=== PATIENT | male | born 1965 | race Caucasian/White ===

== ENCOUNTER → 2016-10-09 | Outpatient (CLI) | payer OTHER | LOC: ULTRA 15:48 | DX: R10.9 Unspecified abdominal pain (principal) ==

== ENCOUNTER 2016-10-22 15:40 | Inpatient (IN) | payer OTHER ==
[~2016-10-22] VITALS: Ht 170.2 cm
--- NOTE | ~2016-10-22 | S ---
[facility] [place] [address] SURGICAL PATH RPT PROCEDURE Name: OLI ORTEGA Room #: 439-P DIS IN M.R.#: [id number] Admission: 10/22/16 Date of : 67 Discharge: 10/24/16 Report #: [id number] Path Case #: [id number] PATHOLOGY REPORT COLLECTION DATE: 10/24/2016 RECEIVED DATE: 10/25/2016 SUBMITTING PHYS: Dr. Betsey Holman OTHER PHYS: Dr. Henrry Preston SPECIMEN(S) RECEIVED: A.Rt colon bx at distal end of stricture * * * * * * * * * * * * FINAL DIAGNOSIS: Colonic mucosa, "right colon biopsy at distal end of stricture": - Minute superficial fragments of colonic mucosa revealing mild hyperplastic changes. - There is no evidence of acute cryptitis, granulomas, adenomatous change, or malignancy. COMMENT: The biopsy fragments are minute and may not be territory representative. Suggest clinical and endoscopic correlation. (SHA:mgr; 10/28/2016) PATHOLOGIST: Benedicto Buckley M.D. REPORT ELECTRONICALLY SIGNED BY: Benedicto Buckley M.D. DATE/TIME: 10/28/2016 12:55 * * * * * * * * * * * * GROSS PATHOLOGY: Received in formalin labeled "Oli Ortega, right colon biopsy," are 3 segments of vick soft tissue measuring 0.4 x 0.3 x 0.1 cm in aggregate dimensions and ranging from 0.1 to 0.2 cm in maximum dimension. The specimen is submitted entirely in cassette A1. (KAH; 10/26/2016) CLINICAL HISTORY: Pre-op dx: Abdominal pain Post-op dx: Inflammatory process of right colon INITIAL CPT CODE(S): A; 15989 Professional services performed by [facility] at [facility] [address] [place] [address] SURGICAL PATH RPT PROCEDURE Name: ORTEGAOLI Room #: 439-P [facility] IN M.R.#: [id number] Admission: 10/22/16 Date of : 67 Discharge: 10/24/16 Report #: [id number] Path Case #: [id number] [address], [place] [address] [facility] by [facility] at [address] [place] [address], [facility] [address] [place] [address]. [place] [address] PHONE: [phone] DIRECTOR: Kendrick Villa M.D. * * * END OF REPORT * * *
[2016-10-22 17:28] VITALS: BP 123/80
[2016-10-22 19:58] VITALS: BP 123/84
[2016-10-23 06:20] LABS: HEMATOCRIT 34.6 % (42.0-52.0); HEMOGLOBIN 11.6 gm/dL (14.0-18.0); MCH 28.2 pg (26.0-34.0); MCHC 33.6 g/dL (28.0-37.0); MCV 83.9 fL (80.0-100.0); RBC 4.12 mil/uL (4.50-6.00); RDW 13.8 % (10.5-14.5); WBC 8.1 thou/uL (4.0-11.0)
[2016-10-23 06:49] LABS: ALBUMIN 2.7 g/dL (3.4-5.0); CALCIUM 8.8 mg/dL (8.5-10.1); CREATININE 1.1 mg/dL (0.7-1.3); POTASSIUM 3.7 mmol/L (3.5-5.1); TOTAL BILIRUBIN 0.5 mg/dL (<0.1-1.0); TOTAL PROTEIN 6.9 g/dL (6.4-8.2)
[2016-10-23 08:47] VITALS: BP 110/72
[2016-10-23 16:21] VITALS: BP 126/83
[2016-10-23 19:47] VITALS: BP 117/74
[2016-10-24 05:42] LABS: HEMATOCRIT 36.4 % (42.0-52.0); HEMOGLOBIN 12.1 gm/dL (14.0-18.0); MCH 28.1 pg (26.0-34.0); MCHC 33.2 g/dL (28.0-37.0); MCV 84.7 fL (80.0-100.0); PLATELET COUNT 272 thou/uL (150-400); RBC 4.29 mil/uL (4.50-6.00); RDW 13.6 % (10.5-14.5); WBC 8.1 thou/uL (4.0-11.0)
[2016-10-24 05:48] LABS: MANUAL DIFF YES
[2016-10-24 05:50] LABS: CALCIUM 8.9 mg/dL (8.5-10.1); POTASSIUM 3.8 mmol/L (3.5-5.1)
[2016-10-24 05:57] VITALS: BP 115/72
[2016-10-24 06:43] LABS: ABSOLUTE NEUTROPHILS 6.6 thou/uL (1.4-8.2); TOTAL CELL COUNT 100
[2016-10-24] MEDS ORDERED: FLAGYL500 MG PO (07:28)
[2016-10-24 08:00] VITALS: BP 121/77
[2016-10-24 16:18] VITALS: BP 121/77
[2016-10-24] MEDS ORDERED: CIPRO500 MG PO (16:18)
== END 2016-10-24 17:20 | disposition home or self-care (01) | DRG 385 ==
LOC: CAT 15:40 → 4S 16:51
PROVIDERS: Family Medicine; Nurse Practitioner Adult Health
PROC: 0DJ08ZZ Inspection of Upper Intestinal Tract, Via Natural or Artificial Opening Endoscopic (ICD-10-PCS; principal; 2016-10-24)
PROC: 0DBK8ZX Excision of Ascending Colon, Via Natural or Artificial Opening Endoscopic, Diagnostic (ICD-10-PCS; 2016-10-24)
DX: K50.90 Crohn's disease, unspecified, without complications (principal); E43 Unspecified severe protein-calorie malnutrition; I10 Essential (primary) hypertension; Z85.47 Personal history of malignant neoplasm of testis
CPT/HCPCS: 10102; 62110; 62900; 70005

== ENCOUNTER → 2017-03-19 | Outpatient (CLI) | payer OTHER ==
[~2017-03-19] MED LIST: CIPRO500 MG PO; FLAGYL500 MG PO
== END ==
LOC: CAT 13:32
DX: Z13.6 Encounter for screening for cardiovascular disorders (principal)

== ENCOUNTER 2017-06-27 05:26 | Day surgery (SDC) | payer BC, OTHER ==
[~2017-06-27] VITALS: Ht 170.2 cm; Wt 72.6 kg
--- NOTE | ~2017-06-27 | EKG ---
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
--- NOTE | ~2017-06-27 | S ---
[facility] [place] [address] SURGICAL PATH RPT PROCEDURE Name: OLI ORTEGA Room #: DEP [facility] M.R.#: [id number] Admission: 06/27/17 Date of : 67 Discharge: 06/27/17 Report #: [id number] Path Case #: [id number] PATHOLOGY REPORT COLLECTION DATE: 06/27/2017 RECEIVED DATE: 06/27/2017 SUBMITTING PHYS: Dr. Gerardo Nunez OTHER PHYS: Dr. Henrry Preston SPECIMEN(S) RECEIVED: A.L5-S1 disc * * * * * * * * * * * * FINAL DIAGNOSIS: "L5-S1 disc," discectomy: - Intervertebral disc material with reactive and degenerative changes. (CLW:mgr; 06/30/2017) PATHOLOGIST: Fátima Arreola M.D. REPORT ELECTRONICALLY SIGNED BY: Fátima Arreola M.D. DATE/TIME: 06/30/2017 22:01 * * * * * * * * * * * * GROSS PATHOLOGY: Received in formalin labeled "Oli Ortega, L5-S1 disc" and consists of a 0.8 x 0.5 x 0.4 cm aggregate of mccracken white fibrocartilaginous tissue. The specimen is entirely submitted as A1. (ALVARO; 06/27/2017) CLINICAL HISTORY: Degenerative disc disease lumbar INITIAL CPT CODE(S): 27454 Professional services performed by [facility] at [facility] [address], [place] [address] Technical services performed by [facility] at [address] [place] [address], [address], [place], [place] [address]. [facility] [address] [place] [address] [address] [place] [address] SURGICAL PATH RPT PROCEDURE Name: OLI ORTEGA Room #: DEP [facility] M.R.#: [id number] Admission: 06/27/17 Date of : 67 Discharge: 06/27/17 Report #: [id number] Path Case #: [id number] [place] [address] PHONE: [phone] DIRECTOR: Kendrick Villa M.D. * * * END OF REPORT * * *
--- NOTE | ~2017-06-27 | O ---
[facility] [place] [address] OPERATIVE REPORT Name: DEBBIE MONCADA Room #: DEP [facility].#: [id number] Admission: 06/27/17 Attend Phys: Gerardo Nunez MD Discharge: 06/27/17 Date of : 67 Report #: [id number] THIS REPORT FOR: //name// CC: Gerardo Nunez Henrry Preston DATE OF SERVICE: 06/27/2017 PREOPERATIVE DIAGNOSIS: Herniated lumbar disk, L5-S1, right. POSTOPERATIVE DIAGNOSIS: Herniated lumbar disk, L5-S1, right. PROCEDURE: Lumbar laminectomy and diskectomy, L5-S1, right. SURGEON: Gerardo Nunez MD INDICATIONS: This 51-year-old gentleman complains of progressive persistent low back and radiating right leg pain. His clinical and MRI findings are consistent with a small herniated disk in the midline, extending toward the right side, causing nerve root impingement. He has tried appropriate conservative measures for several months without much benefit. He has elected to go ahead with surgical laminectomy and diskectomy. DESCRIPTION OF PROCEDURE: The patient was taken to the operating room where he was placed under general anesthesia. Prophylactic intravenous antibiotics were administered. He was turned to the prone position. The low back was meticulously prepped and draped. C-arm was used to visualize the appropriate level. A skin incision was made just to the right of midline overlying the L5-S1 interspace. This was carried through fascia and the paraspinal muscles were retracted out laterally. The lamina of L5 and S1 were identified. A small laminotomy in the inferior aspect of L5 and the superior aspect of S1 were created. This was extended out laterally to the level of facet joint. The ligamentum was excised. Good exposure was established. The dura and nerve root were retracted toward the midline, exposing the underlying disk. There was obvious extruded disk fragment, which was still adherent to the annulus and partially still within the disk space. This was removed, resulting in good decompression. The opening in the annulus was slightly enlarged and then the disk was thoroughly debrided using pituitary rongeurs. A good deal of loose degenerative disk debris was evacuated. C-arm was used to visualize once again with a probe in the disk space confirming I was at the appropriate L5-S1 level. Good decompression of the annulus and the disk in general was established. This seemed to relieve any ongoing pressure on the dura and nerve root. The wound was copiously irrigated. Good hemostasis was confirmed. A 40 mg of Depo-Medrol were left in the epidural space. A small piece of Gelfoam was left covering the laminotomy defect in an effort to improve hemostasis and keep the Depo-Medrol in the localized area. The wound was further irrigated and then closed using 0 [facility] [address] [place] [address] OPERATIVE REPORT Name: DEBBIE MONCADA Room #: DEP [facility] M.R.#: [id number] Admission: 06/27/17 Attend Phys: Gerardo Nunez MD Discharge: 06/27/17 Date of : 67 Report #: [id number] Vicryl in the fascia, 2-0 Monocryl in the subcutaneous tissues and 2-0 Prolene in the skin. About 20 mL of 0.5% Marcaine with epinephrine was injected into the muscle and subcutaneous layers. A sterile dressing was applied. The patient was then awakened and returned to recovery room in good condition. <ELECTRONICALLY SIGNED> By: Gerardo Nunez MD 06/30/17 [id number] [id number] Gerardo Nunez MD /nt
[~2017-06-27 05:26] MED LIST changes: +AMLODIPINE-BEN1 EACH PO; +CLARITIN10 MG PO; +MESALAMINE1.2 GM PO; +NABUMETONE 500500 M1 PO; +NEURONTIN 300300 M1 PO; +TRAMADOL 50 MG50 MG PO
[2017-06-27 07:00] VITALS: BP 151/92
[2017-06-27 09:32] VITALS: BP 151/92
== END 2017-06-27 12:13 | disposition home or self-care (01) ==
LOC: OR 05:26 → TBA 05:26 → OR 09:47
DX: M51.26 Other intervertebral disc displacement, lumbar region (principal); I10 Essential (primary) hypertension; K21.9 Gastro-esophageal reflux disease without esophagitis; Z85.47 Personal history of malignant neoplasm of testis; Z98.890 Other specified postprocedural states; Z79.899 Other long term (current) drug therapy
CPT/HCPCS: 50010; 50101; 50402; 50704; 50850; 56525; 56527; 62110; 62900

== ENCOUNTER → 2020-03-15 | Outpatient (CLI) | payer OTHER | LOC: RAD 14:34 | PROVIDERS: ATTEND Nurse Practitioner | DX: M19.011 Primary osteoarthritis, right shoulder (principal); M25.78 Osteophyte, vertebrae; M47.812 Spondylosis without myelopathy or radiculopathy, cervical region ==

== ENCOUNTER → 2020-06-05 | Outpatient (CLI) | payer OTHER | LOC: RAD 11:19 | PROVIDERS: ATTEND Neurological Surgery | DX: M54.2 Cervicalgia (principal) ==